=== PATIENT | male | born 1990 | race Two or more races ===

== ENCOUNTER 2017-05-14 03:44 | Emergency (ER) | payer SELFPAY ==
--- NOTE | ~2017-05-14 | CT4 ---
[facility] A Service of [facility] RADIOLOGY TEXT RESULTS PATIENT: COREY PORTILLO LOCATION: [facility] : 86 UNIT #: [id number] AGE: [address]: Tono Pierre MD SEX: M ORDER DR: [id number] [facility] [address] [place], [place] [address] [id number] MR#: [id number] Acc #: [id number] NAME: COREY PORTILLO : 1990 SEX: M STUDY DATE/TIME: 05/14/2017 5:31 UNIT: [facility] ROOM: STUDY DESCRIPTION: CT Abd and Pelv Wo Cont Attending Physician: Tono Pierre M.D. Ordering Physician: Tono Pierre M.D. Primary Care Physician: No Primary Care Physician MEDICAL IMAGING REPORT This report is preliminary unless electronic signature is present EXAM CT abdomen and pelvis without contrast. HISTORY Right lower quadrant pain, nausea, vomiting, diarrhea since yesterday. COMPARISON No comparison. TECHNIQUE Axial 3 mm images were obtained through the abdomen and pelvis without IV or oral contrast. This CT exam was performed with one or more of the following radiation dose reduction techniques: automatic exposure control, adjustment of mA and/or kV according to patient size, and iterative reconstruction. FINDINGS The liver, gallbladder, spleen, pancreas, adrenal glands and left kidney are normal. The right kidney shows mild hydronephrosis and the right ureter is slightly dilated. This is caused by a 1 mm stone at the ureterovesical juncture. The aorta is normal in size and there is no adenopathy. The bowel including the appendix appears normal. The bladder and prostate gland are normal. The bones are unremarkable. IMPRESSION 1. Mild hydronephrosis on the right side due to a 1 mm stone at the right ureterovesical juncture. 2. Normal appendix. 3. Otherwise normal. [facility] A Service of [facility] RADIOLOGY TEXT RESULTS PATIENT: COREY PORTILLO LOCATION: [facility] : 86 UNIT #: [id number] AGE: [address]: Tono Pierre MD SEX: M ORDER DR: Dictated by... Haris Lebron M.D. THIS IS AN ELECTRONICALLY VERIFIED REPORT Haris Lebron M.D. at 05/14/2017 9:10 PM JAMEY/melisa TD: 05/14/2017 14:12 JOB #: [id number] MEDICAL IMAGING REPORT Page 1 of 1 COPY
[2017-05-14 04:38] LABS: BASOPHIL% 0.3 % (0-2.5); EOSINOPHIL# 0.1 X10e3 (0-0.7); EOSINOPHIL% 0.9 % (0.0-7.0); HEMOGLOBIN 15.1 gm/dL (13.0-16.0); LYMPHOCYTE% 21.4 % (17.0-45.0); MEAN CELL VOLUME 88.3 FL (83-96); MEAN CORPUSCULAR HEMOGLOBIN 28.3 PG (28-34); MEAN CORPUSCULAR HGB CONC 32.1 g/dL (30-36); MEAN PLATELET VOLUME 7.7 FL (6.5-11.5); MONOCYTE# 0.9 X10e3 (0-1.0); MONOCYTE% 6.4 % (3.0-12.0); NEUTROPHIL# 10.1 X10e3 (1.5-7.1); PLATELET COUNT 325 X10e3 (140-420); RED BLOOD COUNT 5.32 X10e (3.90-5.60); RED CELL DISTRIBUTION WIDTH 13.3 % (11.0-15.5); WHITE BLOOD COUNT 14.2 X10e3 (4.0-10.5)
[2017-05-14 04:40] LABS: URINE SOURCE CLEAN CATCH
[2017-05-14 04:40] LABS: DIFF IND NO
[2017-05-14 04:46] LABS: URINE APPEARANCE CLEAR; URINE BLOOD 3+ (NEG); URINE COLOR DK YELLOW; URINE GLUCOSE NEG (NEG); URINE KETONE 1+ (NEG); URINE LEUKOCYTE ESTERASE TRACE (NEG); URINE NITRATE NEG (NEG); URINE PROTEIN 1+ (NEG)
[2017-05-14 04:49] LABS: CULTURE INDICATED? YES; URBCS1 AUWI 25-50 /[HPF] (0-2); URINE BACTERIA AUWI NEG (NEGATIVE); URINE SQUAMOUS EPITHELIAL CELL OCC /[HPF]
[2017-05-14 04:52] LABS: URINE BILIRUBIN NEG (NEG)
[2017-05-14 04:59] LABS: ALBUMIN SERUM 4.2 g/dL (3.5-5.0); BILIRUBIN, DIRECT 0.2 mg/dL (0.0-0.2); BILIRUBIN,INDIRECT 0.8 mg/dL (0.0-0.9); BUN/CREATININE RATIO 18.75; CALCIUM SERUM 9.2 mg/dL (8.4-10.2); CREATININE SERUM 0.8 mg/dL (0.6-1.4); GLOM FILT RATE Estimated 121.6 mL/min (>60); POTASSIUM 3.3 mmol/L (3.5-5.1); PROTEIN TOTAL SERUM 8.1 g/dL (6.0-8.3)
== END 2017-05-14 06:09 | disposition home or self-care (01) ==
LOC: CED 03:44
PROVIDERS: Emergency Medicine
DX: N13.2 Hydronephrosis with renal and ureteral calculous obstruction (principal)
CPT/HCPCS: 36415; 74176; 80048; 80076; 81003; 82150; 83690; 85025; 87086; 96361; 96374; 96375; 99284; J2270; J2405